=== PATIENT | female | born 1975 | race Caucasian/White ===

== ENCOUNTER 2016-05-24 20:16 | Emergency (ER) | payer OTHER ==
[2016-05-24 20:54] VITALS: BP 104/70
--- NOTE | 2016-05-24 20:59 | UC ---
Lower Extremity/Ankle HPI - HPI Summary HPI Summary: Accidentally kicked suitcase earlier today and injured L 5th toe, initially only saw redness and swelling. Now toe is very bruised, pt is concerned about fx. - History of Current Complaint Stated Complaint: TOE INJURY Time Seen by Provider: 05/24/16 20:39 Hx Obtained From: Patient ?: No Onset/Duration: Sudden Onset Severity Initially: Moderate Severity Currently: Moderate Aggravating Factor(s): Standing, Ambulation Alleviating Factor(s): Rest Able to Bear Weight: Yes - Allergies/Home Medications Allergies/Adverse Reactions: Allergies Allergy/AdvReac Type Severity Reaction Status Date / Time Amoxicillin Allergy Itching Verified 05/24/16 20:41 PMH/Surg Hx/FS Hx/Imm Hx Psychological History Of: Reports: Anxiety, Depression - Family History Known Family History: Positive: Other - stroke in grandmother - Social History Occupation: Employed Part-time Lives: With Family Alcohol Use: None Substance Use Type: None Smoking Status (MU): Never Smoked Tobacco - Immunization History Most Recent Influenza Vaccination: fall 2015 Most Recent Tetanus Shot: 2015 Most Recent Pneumonia Vaccination: never Review of Systems Constitutional: Negative Skin: Bruising Eyes: Negative ENT: Negative Respiratory: Negative Cardiovascular: Negative Gastrointestinal: Negative Genitourinary: Negative Motor: Negative Neurovascular: Negative Musculoskeletal: Arthralgia Neurological: Negative Psychological: Negative All Other Systems Reviewed And Are Negative: Yes Physical Exam Triage Information Reviewed: Yes Appearance: Well-Appearing, No Pain Distress, Well-Nourished Vital Signs Reviewed: Yes Eye Exam: Normal Eyes: Positive: Conjunctiva Clear ENT Exam: Normal ENT: Positive: Normal ENT inspection, Hearing grossly normal, Pharynx normal, TMs normal Dental Exam: Normal Neck exam: Normal Neck: Positive: Supple, Nontender, No Lymphadenopathy Respiratory Exam: Normal Respiratory: Positive: Chest non-tender, Lungs clear, Normal breath sounds, No respiratory distress, No accessory muscle use Cardiovascular Exam: Normal Cardiovascular: Positive: RRR, No Murmur Musculoskeletal: Positive: Other: - bruising, tenderness through L 5th toe Neurological Exam: Normal Psychological Exam: Normal Skin Exam: Normal Lower Extremity Course/Dx - Course Course Of Treatment: Discussed likelihood of toe fracture given clinical presentation, but explained that x-rays usually do not change the management or outcome of injury. Offered to do x-ray but pt declined. I explained that she can always return if she changes her mind. - Differential Dx/Diagnosis Provider Diagnoses: L 5th toe injury, contusion vs fracture Discharge - Discharge Plan Condition: Stable Disposition: HOME Patient Education Materials: Toe Fracture (ED) Additional Instructions: Though you have declined an x-ray today, the injury to your toe is very likely to be a broken bone. Whether and how a small toe is broken rarely affects the management or outcome of the injury. You can continue to walk on it, but try to protect the area from further injury. Feel free to see your primary care provider or return here if your symptoms are worsening or if you feel you are not healing. Most broken bones heal in 4-8 weeks (though some residual soreness may persist for months).
== END 2016-05-24 21:12 | disposition home or self-care (01) ==
LOC: UCEAST 20:16
DX: S99.922A Unspecified injury of left foot, initial encounter (principal); W22.8XXA Striking against or struck by other objects, initial encounter; Y93.9 Activity, unspecified; Y92.9 Unspecified place or not applicable; Z88.1 Allergy status to other antibiotic agents
CPT/HCPCS: 99212; G0463